=== PATIENT | male | born 1970 | race Caucasian/White ===

== ENCOUNTER 2017-05-17 14:58 | Emergency (ER) | payer MEDICAID ==
[~2017-05-17] VITALS: Ht 170.2 cm; Wt 79.4 kg
[2017-05-17 14:58] VITALS: BP 124/75
[2017-05-17] MEDS ORDERED: IV NS 0.9% 1,000 ML ONE (15:23)
[2017-05-17] MEDS ORDERED: IV SET PRIMARY 1 EA INFUS.SET MC ONE (15:23)
[2017-05-17] MEDS ORDERED: ONDANSETRON HCL/PF 4 MG/2 ML VIAL ONE (15:23)
[2017-05-17] MEDS ORDERED: FAMOTIDINE/PF INJ 20 MG/2 ML VIAL IV ONE ×2 (15:23→15:30)
[2017-05-17] MEDS ORDERED: IV NS 0.9% 1,000 ML BAG IV ONE (15:30)
[2017-05-17] MEDS ORDERED: ONDANSETRON HCL/PF 4 MG/2 ML VIAL IVP ONE (15:30)
[2017-05-17 15:43] LABS: BASOPHILS # (AUTO) 0.1 /CMM (0.0-0.2); BASOPHILS % (AUTO) 0.8 % (0.0-2.0); EOSINOPHILS # (AUTO) 0.5 /CMM (0.0-0.7); EOSINOPHILS % (AUTO) 5.2 % (0.0-6.0); HEMATOCRIT 45 % (39-51); HEMOGLOBIN 15.4 g/dL (13.5-17.5); LYMPHOCYTES # (AUTO) 1.8 /CMM (0.8-4.8); LYMPHOCYTES % (AUTO) 17.4 % (20.0-44.0); MEAN CORPUSCULAR HEMOGLOBIN 34 PG (26.0-33.0); MEAN CORPUSCULAR HGB CONC 34 g/dl (31.0-36.0); MEAN CORPUSCULAR VOLUME 101 fL (80-96); MONOCYTES # (AUTO) 0.9 /CMM (0.1-1.30); MONOCYTES % (AUTO) 8.4 % (2.0-12.0); NEUTROPHILS # (AUTO) 7.2 /CMM (1.8-8.9); NEUTROPHILS % (AUTO) 68.2 % (43.0-81.0); PLATELET COUNT (AUTO) 319 /CMM (150-450); RDW COEFFICIENT OF VARIATION 12.9 (11.5-15.0); RED BLOOD CELL COUNT(AUTO) 4.49 MIL/uL (4.5-6.0); WHITE BLOOD COUNT (AUTO) 10.6 K/uL (4.3-11.0)
[2017-05-17 15:43] LABS: APPEARANCE,URINE CLEAR (CLEAR); BILIRUBIN,URINE NEGATIVE (NEGATIVE); BLOOD, URINE NEGATIVE Ery/uL (NEGATIVE); COLOR,URINE YELLOW (YELLOW); KETONES,URINE 2+ (NEGATIVE); LEUKOCYTE ESTERASE ,URINE NEGATIVE (NEGATIVE); NITRITE, URINE NEGATIVE (NEGATIVE); PROTEIN,URINE NEGATIVE (NEGATIVE); UGLUCOSE 3+ mg/dL (NEGATIVE); UROBILINOGEN,URINE 0.2 EU/dL (0.2)
[2017-05-17 15:51] LABS: BACTERIA,URINE Rare /HPF (None Seen); RBC,URINE 0-2 /HPF (0-2); WBC,URINE 0-2 /HPF (0-3)
[2017-05-17 15:52] LABS: CALCIUM, SERUM 8.5 mg/dL (8.5-10.1); CREATININE 1.4 mg/dL (0.6-1.3)
[2017-05-17 15:52] LABS: SQUAMOUS EPITHELIAL CELL,UR Rare /HPF (None Seen)
== END 2017-05-17 16:24 | disposition other institution (70) ==
LOC: ER 15:01
DX: Z76.0 Encounter for issue of repeat prescription (principal); E10.9 Type 1 diabetes mellitus without complications; G62.9 Polyneuropathy, unspecified; I25.10 Atherosclerotic heart disease of native coronary artery without angina pectoris; Z79.4 Long term (current) use of insulin
CPT/HCPCS: 36415; 80048; 81001; 82962; 85025; 96361; 96374; 96375; 99284; A4606; J2405 ×2; J3490 ×2; J7030 ×2; Z7610; 81000-TC

== ENCOUNTER 2017-06-25 14:59 | Emergency (ER) | payer MEDICAID ==
[~2017-06-25] VITALS: Ht 170.2 cm; Wt 81.6 kg
[2017-06-25 14:59] VITALS: BP 124/77
[2017-06-25] MEDS ORDERED: INSULIN REGULAR, HUMAN 100 UNIT/ML 10 ML VIAL SQ STA (15:30)
[2017-06-25] MEDS ORDERED: INSULIN ASPART HUMALOG/NOVOLOG 100 UNIT/ML CARTRIDGE SQ ONE (15:30)
[2017-06-25] MEDS ORDERED: INSULIN REGULAR, HUMAN 100 UNIT/ML 10 ML VIAL ONE (15:43)
== END 2017-06-25 16:11 | disposition home or self-care (01) ==
LOC: ER 15:01
DX: E11.65 Type 2 diabetes mellitus with hyperglycemia (principal); I25.10 Atherosclerotic heart disease of native coronary artery without angina pectoris; G62.9 Polyneuropathy, unspecified; H53.2 Diplopia
CPT/HCPCS: 82962 ×2; 96372; 99283; A4606; J1815 ×2; Z7610

== ENCOUNTER 2018-04-12 06:33 | Emergency (ER) | payer MEDICAID, OTHER ==
[~2018-04-12] VITALS: Ht 170.2 cm; Wt 77.1 kg
[2018-04-12 06:35] VITALS: BP 145/85
[2018-04-12] MEDS ORDERED: LIDOCAINE VISCOUS 2% UD 15 ML UDC ONE (06:52)
[2018-04-12] MEDS ORDERED: LIDOCAINE VISCOUS 2% UD 15 ML UDC MM ONE (07:00)
== END 2018-04-12 07:04 | disposition home or self-care (01) ==
LOC: ER 06:38
DX: H60.92 Unspecified otitis externa, left ear (principal); I25.10 Atherosclerotic heart disease of native coronary artery without angina pectoris; E03.9 Hypothyroidism, unspecified; E11.42 Type 2 diabetes mellitus with diabetic polyneuropathy; F39 Unspecified mood [affective] disorder; H53.2 Diplopia
CPT/HCPCS: A4606; Z7610

== ENCOUNTER 2018-04-18 10:48 | Emergency (ER) | payer MEDICAID, OTHER ==
[~2018-04-18] VITALS: Ht 167.6 cm; Wt 75.7 kg
--- NOTE | 2018-04-18 11:10 | NUR ---
"CAN'T HEAR FROM BOATH EARS" X 2 WEEKS, NAD NOTED, VSS, RESP EVEN AND UNLABORED, PT WAS PUT MONITOR. AT BS.
[2018-04-18] MEDS ORDERED: PIPERACILLIN /TAZOBACTAM 3.375 G VIAL IV ONE (11:27)
[2018-04-18] MEDS ORDERED: ACETAMINOPHEN ES 500 MG TABLET ONE (11:28)
[2018-04-18] MEDS ORDERED: ACETAMINOPHEN ES 500 MG TABLET PO ONE (11:30)
[2018-04-18] MEDS ORDERED: PIPERACILLIN /TAZOBACTAM 3.375 G in IV D5W 50 ML IV ONE (11:30)
[2018-04-18] MEDS ORDERED: IV NS 0.9% 1,000 ML BAG IV ONE (11:30)
[2018-04-18 11:36] LABS: BASOPHILS # (AUTO) 0.4 /CMM (0.0-0.2); BASOPHILS % (AUTO) 1.5 % (0.0-2.0); EOSINOPHILS % (AUTO) 0.3 % (0.0-6.0); HEMATOCRIT 41 % (39-51); HEMOGLOBIN 13.7 g/dL (13.5-17.5); LYMPHOCYTES # (AUTO) 0.6 /CMM (0.8-4.8); LYMPHOCYTES % (AUTO) 2.1 % (20.0-44.0); MEAN CORPUSCULAR HGB CONC 33 g/dl (31.0-36.0); MEAN CORPUSCULAR VOLUME 95 fL (80-96); MONOCYTES # (AUTO) 0.5 /CMM (0.1-1.30); MONOCYTES % (AUTO) 1.9 % (2.0-12.0); NEUTROPHILS % (AUTO) 94.2 % (43.0-81.0); PLATELET COUNT (AUTO) 364 /CMM (150-450); RED BLOOD CELL COUNT(AUTO) 4.32 MIL/uL (4.5-6.0); WHITE BLOOD COUNT (AUTO) 26.6 K/uL (4.3-11.0)
[2018-04-18 11:53] LABS: INR 0.94 (0.85-1.15)
[2018-04-18] MEDS ORDERED: AZITHROMYCIN 500 MG in IV D5W 250 ML IV ONE (12:00)
[2018-04-18 12:11] LABS: ALBUMIN 1.6 g/dL (3.4-5.0); BILIRUBIN,DIRECT 0.5 mg/dL (0.0-0.2); BILIRUBIN,TOTAL 0.9 mg/dL (0.2-1.0); CALCIUM, SERUM 8.8 mg/dL (8.5-10.1); CREATININE 1.6 mg/dL (0.6-1.3); POTASSIUM 3.9 mmol/L (3.5-5.1); TOTAL PROTEIN, SERUM 6.2 g/dL (6.4-8.2)
[2018-04-18] MEDS ORDERED: LEVO200T8 PO (12:14)
[2018-04-18] MEDS ORDERED: PRAV40TA3 PO (12:14)
[2018-04-18] MEDS ORDERED: DULO60CA45 PO (12:14)
[2018-04-18] MEDS ORDERED: NIAC500T2 PO (12:14)
[2018-04-18] MEDS ORDERED: ASPI-1169 PO (12:14)
[2018-04-18] MEDS ORDERED: LOSA25TA13 PO (12:14)
[2018-04-18] MEDS ORDERED: ESCI10TA PO (12:14)
[2018-04-18] MEDS ORDERED: DULO20CA PO (12:14)
[2018-04-18] MEDS ORDERED: INSU100V27 SQ (12:17)
--- NOTE | 2018-04-18 13:08 | NUR ---
[facility] CALLED,SPOKE WITH [facility] [employer] [facility] SENT TO [phone]. ASKED FOR AN ICU LEVEL OF CARE PER DR NARVAEZ
[2018-04-18 14:12] LABS: ABG BASE EXCESS -11.7 mmol/L; ABG PCO2 39.4 mmHg (35.0-45.0); ABG PH 7.212 (7.350-7.450); ABG PO2 48.5 mmHg (75.0-100.0); COHb 1.2 % (0.5-1.5); MetHb 0.5 % (0.0-1.5); O2Hb 77.7 % (94.0-97.0); SITE, ABG LEFT ARM; VENT MODE, BG ROOM AIR
--- NOTE | 2018-04-18 14:42 | NUR ---
PT STILL UNABLE TO GIVE URINE, REFUSED STRAIGHT CATH.
--- NOTE | 2018-04-18 15:11 | NUR ---
RECEIVED A CALL FROM [facility] AND WAS GIVEN A BED FOR THIS PT, RM#: [id number] NUMBER FOR RN REPORT IS ETA OF 1630 WAS GIVEN FOR BLS TRANSPORT [address] CHAN IS THE ACCEPTING MD.
[2018-04-18 17:34] LABS: APPEARANCE,URINE Clear (CLEAR); BILIRUBIN,URINE SMALL (NEGATIVE); BLOOD, URINE Negative Ery/uL (NEGATIVE); COLOR,URINE Yellow (YELLOW); KETONES,URINE 40 (NEGATIVE); LEUKOCYTE ESTERASE ,URINE Negative (NEGATIVE); NITRITE, URINE Negative (NEGATIVE); PROTEIN,URINE 30 mg/dl (NEGATIVE); UGLUCOSE >=1000 mg/dL (NEGATIVE)
[2018-04-18] MEDS ORDERED: IV NS 0.9% 1,000 ML IV ONE (18:28)
[2018-04-18 18:29] LABS: RBC,URINE 0-2 /HPF (0-2); WBC,URINE 0-2 /HPF (0-3)
[2018-04-18 18:30] LABS: BACTERIA,URINE Rare /HPF (None Seen); SQUAMOUS EPITHELIAL CELL,UR Few /HPF (None Seen); URINE AMORPHOUS URATE Few /HPF (None Seen)
[2018-04-18 18:31] LABS: COARSE GRANULAR CASTS,URINE 1-2/HPF /LPF (None Seen)
[2018-04-18] MEDS ORDERED: INSULIN REGULAR, HUMAN 100 UNIT in IV NS 0.9% 99 ML IV PRN ×2 (19:00)
--- NOTE | 2018-04-18 19:15 | NUR ---
spoke with case making machine operator billy, awaiting call back from nurse case making machine operator. call back number for case making machine operator [phone]
--- NOTE | 2018-04-18 19:26 | NUR ---
Spoke with [employer] internal audit manager at [phone]. Per [employer] is is going to work on getting a CCT transport
[2018-04-18 20:47] VITALS: BP 105/51
--- NOTE | 2018-04-18 20:47 | NUR ---
Patient does not wish to proceed with medical care recommended by Dr. Mckeon. Patient given information related to possible complications, up to and including , which could occur as a result of leaving the hospital at this time. Patient verbalizes understanding of risks involved due to leaving against medical advice. Patient has signed AMA form.
--- NOTE | 2018-04-18 20:48 | NUR ---
IV removed. Catheter intact and site benign. Pressure and 4x4 applied to site. No bleeding noted.
== END 2018-04-18 20:49 | disposition left against medical advice (07) ==
LOC: ER 10:51
DX: J18.9 Pneumonia, unspecified organism (principal); R65.20 Severe sepsis without septic shock; H60.23 Malignant otitis externa, bilateral; E87.1 Hypo-osmolality and hyponatremia; E11.65 Type 2 diabetes mellitus with hyperglycemia; E11.40 Type 2 diabetes mellitus with diabetic neuropathy, unspecified; I25.10 Atherosclerotic heart disease of native coronary artery without angina pectoris; E03.9 Hypothyroidism, unspecified; F39 Unspecified mood [affective] disorder; H53.2 Diplopia; F17.200 Nicotine dependence, unspecified, uncomplicated; Z79.4 Long term (current) use of insulin; Z79.82 Long term (current) use of aspirin
CPT/HCPCS: 36415; 36600; 71045; 80048; 80076; 81001; 82010; 82803; 82962; 83605 ×2; 85025; 85730; 87040 ×2; 87077; 87086; 87186; 93005; 96361; 96365; 96367; 96375; 99291; A4606; J0456; J1815; J2543 ×2; J7030 ×4; J7040; J7060 ×2; Z7610; 81000-TC